=== PATIENT | female | born 1945 | race Caucasian/White ===

== ENCOUNTER → 2019-10-21 14:56 | Outpatient (BNVA) | payer MEDICARE, OTHER, SELFPAY | PROVIDERS: Family Provider Family Medicine; Referring Provider Nurse Practitioner Family; Visit Provider Podiatrist Foot & Ankle Surgery | DX: M19.072 Primary osteoarthritis, left ankle and foot (principal); M79.672 Pain in left foot; M77.32 Calcaneal spur, left foot | CPT/HCPCS: 73630; 87804 ==

== ENCOUNTER 2020-02-27 15:42 | Outpatient (CLI) | payer MEDICARE, OTHER, SELFPAY ==
--- NOTE | 2020-02-27 16:17 | XR_ITS ---
WS: [id number] TIBIA-FIBULA LEFT TECHNIQUE: 2 views of the left tibia-fibula CLINICAL INFORMATION: UNSPECIFIED FALL, INITIAL ENCOUNTER COMPARISON: None. FINDINGS: No evidence of acute fracture dislocation. Normal tibiotalar joint. Normal visualized tibia and fibul a. Normal soft tissues. Partially visualized left TKA. XR/XR tibia fibula LT 2V [id number] IMPRESSION: Normal left tibia and fibula.
--- NOTE | 2020-02-27 16:17 | XR_ITS ---
WS: [id number] HIPS BILATERAL TECHNIQUE: 5 views bilateral hips Including pelvis CLINICAL INFORMATION: UNSPECIFIED FALL, INITIAL ENCOUNTER COMPARISON: None. FINDINGS: Osteopenia. Normal pubic rami. Moderate degenerative arthritis both hips with joint space narrowing. Degenerative arthritis lower lumbar spine. No acute fractures. XR/XR hip BI m 5V wo/w pel* [id number] IMPRESSION: Moderate degenerative arthritis both hips with joint space narrowing. No acute fractures.
--- NOTE | 2020-02-27 16:17 | XR_ITS ---
WS: [id number] LUMBAR SPINE TECHNIQUE: 3 views of the lumbar spine CLINICAL INFORMATION: LOW BACK PAIN COMPARISON: None. FINDINGS: Mild lumbar curve convex right. Advanced spondylitic changes lumbar spine. Cholecystectomy clips. Hyp oplastic ribs at T12. Five tsz-lqm-tzagfal lumbar vertebral bodies. Slight anterolisthesis L3 on L4 and L4 on L5. Disc space narrowing of the lumbar spine. Chronic appea ring biconcave compression fracture L1 with loss of approximately 50% vertebral body height. Mild ret ropulsion of the posterior superior cortex. This can be further evaluated with MRI or CT. Moderate fa cet arthropathy L3-L5. XR/XR lumbar spine 2-3V* [id number] IMPRESSION: 1. Mild lumbar curve. Advanced spondylitic changes. 2. Biconcave compression L1 vertebral body has a chronic appearance with loss of approximately 50% vertebral body height. Mild retropulsion of the posterior superior cortex. This can be further evaluated with MRI or CT. 3. Disc space narrowing throughout the lumbar spine worse at L4-L5. 4. Slight anterolisthesis L3 on L4 and L4 on L5.
== END 2020-02-27 15:43 | disposition home or self-care (01) ==
LOC: RADWPI 15:45
PROVIDERS: Family Provider Family Medicine; PCP Family Medicine; Visit Provider Family Medicine
DX: M54.5 Low back pain (principal); M16.0 Bilateral primary osteoarthritis of hip; M48.56XA Collapsed vertebra, not elsewhere classified, lumbar region, initial encounter for fracture
CPT/HCPCS: 72100; 73523; 73590

== ENCOUNTER 2020-03-17 15:09 | Outpatient (CLI) | payer MEDICARE, OTHER, SELFPAY ==
--- NOTE | 2020-03-17 15:17 | MR_ITS ---
WS: [id number] MRI LUMBAR SPINE NONCONTRAST TECHNIQUE: Sagittal T1, T2 and STIR imaging. Axial T1 and T2 imaging. CLINICAL INFORMATION: WEDGE COMPRESSION FX 1ST LUMBAR VERTEBRA COMPARISON: None. FINDINGS: Mild lumbar curve. Slight anterolisthesis L4 on L5. Compression fracture L1 vertebral body measuring approximately 50% with retropulsion posterior superior cortex. This results in mild to moderate centr al canal stenosis. Edema within the L1 vertebral body consistent with acute to subacute compression. L1-L2: Mild annular bulging. Slight narrowing of the left subarticular recess. Mild facet arthropathy . Spinal canal is patent. Mild facet arthropathy. L2-L3: Mild disc bulging with endplate ridging. Narrowing of the left greater than right subarticular recess. Moderate facet arthropathy. Mild left and no significant right foraminal narrowing. L3-L4: Mild disc bulging and osteophytic ridging. Slight impingement on the left subarticular recess and traversing left L4 nerve root. Mild left and no significant right foraminal narrowing. Moderate f acet arthropathy. L4-L5: Mild disc bulging with narrowing of the subarticular recess bilaterally. Mild central canal st enosis. Moderate right and no significant left foraminal narrowing. Moderate facet arthropathy. L5-S1: Mild disc bulging with slight effacement of ventral thecal sac. Moderate facet arthropathy. Sp inal canal and foramen are patent. Visualized pelvic bony structures: Normal. Paravertebral soft tissues: Normal. MR/MR lumbar spine wo con* [id number] IMPRESSION: 1. 50% compression involving L1 superior endplate with mild retropulsion poste rior superior cortex. This results in mild to moderate central canal narrowing. 2. Edema involving the L1 vertebral body consistent with acute to subacute com pression. 3. Grade 1 anterolisthesis L4 on L5 with mild central canal stenosis and impin gement subarticular recess bilaterally. Moderate right L4-5 foraminal narrowing . 4. Moderate facet arthropathy L4-L5 and L5-S1. 5. Other chronic changes described above.
== END 2020-03-17 15:10 | disposition home or self-care (01) ==
LOC: RADSHAW 15:14
PROVIDERS: PCP Family Medicine; Visit Provider Family Medicine
DX: S32.010A Wedge compression fracture of first lumbar vertebra, initial encounter for closed fracture (principal); X58.XXXA Exposure to other specified factors, initial encounter; R60.9 Edema, unspecified; M47.817 Spondylosis without myelopathy or radiculopathy, lumbosacral region
CPT/HCPCS: 72148

== ENCOUNTER 2020-05-05 08:12 | Outpatient (CLI) | payer MEDICARE, OTHER, SELFPAY ==
--- NOTE | 2020-05-05 | MM_ITS ---
WS: [id number] BILATERAL DIGITAL SCREENING MAMMOGRAPHY WITH CAD CLINICAL INFORMATION: SCREEN HISTORY: Screening mammogram. No current complaints. COMPARISON: None. TECHNIQUE: Bilateral CC and MLO views. FINDINGS: Scattered fibroglandular densities bilaterally. Benign punctate calcifications. Indeterminate slightl y spiculated and ovoid densities subareolar right breast largest measuring 10 mm. No comparisons avai lable. RECOMMEND RIGHT DIAGNOSTIC MAMMOGRAPHY AND ULTRASOUND FOR FURTHER EVALUATION. Unremarkable left breast.. MM/[place] [id number] IMPRESSION: BI-RADS: 0-Incomplete: Need additional imaging evaluation FOLLOW UP: Need Additional Imaging
== END 2020-05-05 08:13 | disposition home or self-care (01) ==
LOC: RADSHAW 08:15
PROVIDERS: PCP Family Medicine; Visit Provider Family Medicine
DX: Z12.31 Encounter for screening mammogram for malignant neoplasm of breast (principal); R92.1 Mammographic calcification found on diagnostic imaging of breast
CPT/HCPCS: 77067

== ENCOUNTER 2020-05-26 13:03 | Outpatient (CLI) | payer MEDICARE, OTHER, SELFPAY ==
--- NOTE | 2020-05-26 13:24 | MM_ITS ---
WS: [id number] RIGHT DIGITAL MAMMOGRAPHY WITH CAD CLINICAL INFORMATION: OVID DENSITIES COMPARISON: May 05, 2020 TECHNIQUE: 3 views of the right breast were obtained. FINDINGS: The right breast is composed of heterogeneous fibroglandular density tissue, which can limit the dete ction of small underlying mass lesions. Again seen are the subareolar ovoid and spiculated densities along the posterior nipple line the larg est measuring 10 mm. These are persistent on spot compression views. Ultrasound is pending. Stable dy strophic and lucent centered calcifications. ULTRASOUND BREAST RIGHT TECHNIQUE: Ultrasound right breast focused area of concern. CLINICAL INFORMATION: OVID DENSITIES COMPARISON: None. FINDINGS: Ultrasound right breast at the 12:00 position. Simple cyst corresponds to the ovoid density seen on t he mammogram measuring 1.2 x 1.0 x 1.1 CM. Additional small subcentimeter cysts or ectatic duct measu ring 5 x 3 mm. Findings are benign. No evidence of pathologic mass or lesion. No lesions to target fo [place] biopsy. MM/[place] [id number] IMPRESSION: BI-RADS: 2-Benign FOLLOW UP: 1 Year Follow-up Recommend return to annual screening mammography.
== END 2020-05-26 13:04 | disposition home or self-care (01) ==
LOC: RADSHAW 13:05
PROVIDERS: PCP Family Medicine; Visit Provider Family Medicine
DX: R92.2 Inconclusive mammogram (principal); N60.01 Solitary cyst of right breast
CPT/HCPCS: 76642; 77065

== ENCOUNTER 2020-07-03 09:45 | Outpatient (CLI) | payer MEDICARE, OTHER, SELFPAY ==
--- NOTE | 2020-07-03 09:54 | XR_ITS ---
WS: [id number] Exam: XR knee RT 3V* [id number] Date/Time of Exam: 07/03/2020 9:54 AM Reason For Exam: PAIN IN RIGHT KNEE No fracture or dislocation. Mild degenerative narrowing of the medial joint compartment. No joint eff usion. Normal soft tissues. XR/XR knee RT 3V* [id number] IMPRESSION: 1. No fracture or joint effusion. 2. Mild degenerative narrowing of the medial joint compartment
== END 2020-07-03 09:46 | disposition home or self-care (01) ==
LOC: RADWPI 09:49
PROVIDERS: PCP Family Medicine; Visit Provider Family Medicine
DX: M25.561 Pain in right knee (principal)
CPT/HCPCS: 73562

== ENCOUNTER → 2020-08-13 10:24 | Outpatient (BNVA) | payer MEDICARE, OTHER, SELFPAY | PROVIDERS: PCP Family Medicine; Referring Provider Family Medicine; Visit Provider Specialist | DX: M25.561 Pain in right knee (principal); M17.11 Unilateral primary osteoarthritis, right knee | CPT/HCPCS: 73560; 73565 ==

== ENCOUNTER 2021-03-24 14:20 | Outpatient (CLI) | payer MEDICARE, OTHER, SELFPAY ==
--- NOTE | 2021-03-24 14:37 | XR_ITS ---
WS: [id number] Bone mineral density performed on a Pickie IDXA, 03/24/2021 Clinical data: OSTEOPOROSIS Comparison study: DEXA scan, 08/16/2018. Findings: The first 4 lumbar vertebral bodies demonstrated the bone mineral density of 1.546 g/cm2 for a young adult T score of 3.1. Measurement of the left hip reveals a bone mineral density of 0.847 g/cm2 with a young adult T score of -1.3. Measurement of the right hip reveals the bone mineral density of 0.812 g/cm2 for young adult T score of -1.6. XR/XR DEXA axial skeleton* [id number] Impression: 1. The bone mineral density of the lumbar spine has improved, normal lumbar spi ne. 2. The bone mineral density of the left hip has improved slightly, osteopenia. 3. The bone mineral density of the right hip has diminished slightly, osteopeni a.
== END 2021-03-24 14:21 | disposition home or self-care (01) ==
PROVIDERS: PCP Family Medicine; Visit Provider Nurse Practitioner
DX: M81.0 Age-related osteoporosis without current pathological fracture (principal); M85.89 Other specified disorders of bone density and structure, multiple sites
CPT/HCPCS: 77080

== ENCOUNTER → 2021-04-22 14:30 | Outpatient (BNVA) | payer MEDICARE, OTHER, SELFPAY | PROVIDERS: PCP Family Medicine; Visit Provider Surgery | DX: Z20.822 Contact with and (suspected) exposure to COVID-19 (principal) | CPT/HCPCS: 87635 ==

== ENCOUNTER 2021-04-28 07:05 | Day surgery (SDC) | payer MEDICARE, OTHER, SELFPAY ==
[2021-04-27 10:11] VITALS: BMI 31.8
[2021-04-28] VITALS (7 sets, daily range): BP systolic 130–158; BP diastolic 71–87; PULSE 82–97; RESP 15–17; TEMP 36.2–36.4; O2SAT 97–99
[2021-04-28] MEDS: sodium chloride 0.9% 1,000 ML 30 ML IV (07:36)
--- NOTE | 2021-04-28 07:40 | W.PM.OPSUD ---
Surgery/Procedure H&P Update DATE OF PROCEDURE: April 28, 2021 DATE H&P PERFORMED: 04/06/21 H&P UPDATE INFORMATION: I have reviewed H&P completed within last 30 days, I have examined patient prior to procedure and No changes to prior documentation PREOP DIAGNOSIS: Grade 4 hemorrhoids PLANNED PROCEDURE: Operation Date: 04/28/21 08:15 Proposed Procedures p Hemorroidectomy 16296 K64.3(Not Applicable) - Michael Anna MD
--- NOTE | 2021-04-28 07:47 | ANES.PREANE2 ---
Pre-Anesthetic Assessment Pre-Anesthetic Assessment: Height/Weight: Height 1.6 m Weight 81.647 kg Temp Pulse Resp BP Pulse Ox 97.1 F L 82 15 144/87 97 04/28/21 07:19 04/28/21 07:19 04/28/21 07:19 04/28/21 07:19 04/28/21 07:19 Preop Diagnosis: Grade 4 hemorrhoids Proposed Procedure: Operation Date: 04/28/21 08:15 Proposed Procedures p Hemorroidectomy 06406 K64.3(Not Applicable) - Michael Anna MD Was Beta Eric taken within 24 hours: Yes Was Clonidine taken within 24 hours: N/A Last intake: Intake Last Liquid Date 04/27/21 Last Liquid Time 22:00 Last Solid Date 04/27/21 Last Solid Time 20:00 Social: Social History: No alcohol and No tobacco Exam: Pre-Anes Outpt Exam: alert, oriented x 3, clear to auscultation bilaterally and regular rate & rhythm Airway: Submandibular: WNL Cervical ROM: WNL MP: 2 Dentition: Full CV/HEM: CV/HEM: HTN Metabolic: Metabolic: Hyperlipidemia Anesthetic Plan: ASA status: 3 Anesthesia: General Risk of > 500 ml blood loss (7ml/kg in children): No Meds/Allergies Current Medications: Current Medications Generic Name Dose Route Start Last Admin Trade Name Freq PRN Reason Stop Dose Admin Sodium Chloride 1,000 mls @ 30 ml s/hr 04/28/21 07:15 04/28/21 07:36 Sodium Chloride 0.9% IV 04/29/21 07:14 30 mls/hr .Q24H CRISELDA Administration PFSH Anesthesia PFSH: Medical History GERD (gastroesophageal reflux disease) Hypertension Osteoarthritis Surgical History H/O shoulder surgery bilateral for rotatorcuff History of bunionectomy History of cholecystectomy History of hysterectomy History of total left knee replacement Status post colonoscopy Family History Other Anesthesia complication CAD (coronary artery disease) Dementia Hyperlipidemia Hypertension Stroke Denies family history of Diabetes Clotting disorder Psychiatric illness Chronic kidney disease (CKD) Suicide Bleeding disorder Family history of premature coronary artery disease Lung disease Cancer Social History Smoking and tobacco status: never smoked Second hand smoke exposure: No Alcohol intake: never Lives independently: Yes Household members: spouse Data Anesthesia CBC & Chem 7: 04/28/21 07:33 Cardiac Studies: No Data to Display
[2021-04-28 08:07] LABS: Anion Gap 15.4 (5-19); Blood Urea Nitrogen 19 mg/dL (8-23); Calcium 9.3 mg/dL (8.5-10.5); Carbon Dioxide 27 mmol/L (22-29); Chloride 101 mmol/L (98-107); Glucose 98 mg/dL (65-115); Osmolality Calculated 290 mOsm/kg (285-295); Potassium 4.4 mmol/L (3.5-5.1); Sodium 139 mmol/L (136-145)
--- NOTE | 2021-04-28 09:07 | PM.OP ---
Operative Report Date of procedure: April 28, 2021 Pre-op Diagnosis: Grade 4 hemorrhoids Post-op diagnosis: same Procedure Done: Hemorrhoidectomy x 2 Specimens removed/disposition: Hemorrhoidal columns x2 Surgeon: Michael Anna Anesthesia: General Condition: stable Disposition: PACU Procedure: The patient was taken to the operating room and intubated under general anesthesia after IV antibiotic had been administered and placed in a prone jackknife position. The buttocks were taped apart. The perineum was prepped and draped in a sterile manner. A perianal block was performed using 10 cc of Exparel mixed with 10 cc of 0.5% Marcaine mixed with 10 cc of saline. Anoscope was introduced to examine the rectum and anal canal and 2 hemorrhoid pedicles were identified. The pedicle on the right side was grasped with Allis clamps and a skin incision was made from the perianal skin to the anal verge and the plane identified superficial to the internal sphincter muscle and the external and internal hemorrhoids were excised with an energy device. The pedicle on the left side was grasped with Allis clamps and a skin incision was made from the perianal skin to the anal verge and the plane identified superficial to the internal sphincter muscle and the external and internal hemorrhoids were excised with an energy device. Hemostasis ensured and a Adaptic gauze soaked in Vaseline and placed within the anal canal. Dressings were applied and the patient was extubated and transferred to recovery room in stable condition.
[2021-04-28] MEDS: HYDROcodone-acetaminophen 5-325 mg Tablet 1 TAB PO (09:46)
--- NOTE | 2021-04-28 17:50 | ANE.PACU2 ---
Inpatient post-anesthesia follow up: Airway intact: Yes Vital signs: Temperature 97.2 F Pulse Rate 87 Respiratory Rate 16 Blood Pressure 141/71 Pulse Oximetry 98 Oxygen Delivery Me thod Room Air Oxygen Flow Rate 6 Fraction of Inspir ed Oxygen Hydration adequate: Yes Nausea and vomiting: No Pain level: 2 Mental status: Baseline
== END 2021-04-28 10:15 | disposition home or self-care (01) ==
PROVIDERS: PCP Family Medicine; Visit Provider Surgery
PROC: (CPT 46260; principal; 2021-04-28 08:10)
DX: K64.3 Fourth degree hemorrhoids (principal); K64.8 Other hemorrhoids; K21.9 Gastro-esophageal reflux disease without esophagitis; I10 Essential (primary) hypertension; M19.90 Unspecified osteoarthritis, unspecified site; E78.5 Hyperlipidemia, unspecified
CPT/HCPCS: 46260; 80048; 88304; C9290; J0330; J0690; J2370; J2704; J3010; J3490; J7030

== ENCOUNTER 2021-07-01 10:53 | Outpatient (CLI) | payer MEDICARE, OTHER, SELFPAY ==
--- NOTE | 2021-07-01 10:57 | MM_ITS ---
WS: [id number] Exam: [place] [id number] Date/Time of Exam: 07/01/2021 11:03 AM Reason For Exam: SCREENING VIEWS: MLO and CC views both breasts. Comparison made with prior exam of 05/05/2020. Findings: Stable appearing nodular densities and benign calcifications noted in both breasts. No new finding in either breast. Scattered fibroglandular densities MM/[place] [id number] Impression: BI-RADS: 2-Benign FOLLOW-UP: 1 Year Follow-up This mammogram was also analyzed by the Computer Aided Detection System R2 Imag e Development Technician.
== END 2021-07-01 10:54 | disposition home or self-care (01) ==
PROVIDERS: PCP Family Medicine; Visit Provider Family Medicine
DX: Z12.31 Encounter for screening mammogram for malignant neoplasm of breast (principal)
CPT/HCPCS: 77067

== ENCOUNTER 2022-07-04 09:04 | Outpatient (CLI) | payer MEDICARE, OTHER, SELFPAY ==
--- NOTE | 2022-07-04 09:12 | MM_ITS ---
WS: [id number] BILATERAL SCREENING DIGITAL TOMOSYNTHESIS MAMMOGRAM WITH CAD HISTORY: SCREENING COMPARISON: 05/26/2020, 05/05/2020, 07/01/2021 Bilateral CC and MLO views with tomosynthesis and synthetic mammography submitted. Computer aided det ection analyzed. Breast composition: There are scattered areas of fibroglandular density. No suspicious masses, microc alcifications or architectural distortion. Long-term stability of high density nodules in the anterio r RIGHT breast. Benign bilateral calcifications. MM/[place] [id number] IMPRESSION: BI-RADS: 2-Benign FOLLOW UP: 1 Year Follow-up
== END 2022-07-04 09:05 | disposition home or self-care (01) ==
LOC: RAD 09:06
PROVIDERS: PCP Family Medicine; Visit Provider Family Medicine
DX: Z12.31 Encounter for screening mammogram for malignant neoplasm of breast (principal)
CPT/HCPCS: 77063; 77067

== ENCOUNTER → 2023-03-06 12:50 | Outpatient (BNVA) | payer MEDICARE, OTHER, SELFPAY | PROVIDERS: PCP Family Medicine; Visit Provider Dermatology | DX: L82.0 Inflamed seborrheic keratosis (principal); L81.4 Other melanin hyperpigmentation; D23.61 Other benign neoplasm of skin of right upper limb, including shoulder; D23.71 Other benign neoplasm of skin of right lower limb, including hip; L57.0 Actinic keratosis | CPT/HCPCS: 17000; 17003; 17110; 99213 ==

== ENCOUNTER → 2023-05-24 09:49 | Outpatient (BNVA) | payer MEDICARE, OTHER, SELFPAY | PROVIDERS: PCP Family Medicine; Visit Provider Specialist | DX: M19.011 Primary osteoarthritis, right shoulder; M19.012 Primary osteoarthritis, left shoulder; M75.101 Unspecified rotator cuff tear or rupture of right shoulder, not specified as traumatic; M75.102 Unspecified rotator cuff tear or rupture of left shoulder, not specified as traumatic | CPT/HCPCS: 20610; 73030; 99214; J1100; J2795; J3301 ==

== ENCOUNTER → 2023-06-14 14:27 | Outpatient (BNVA) | payer MEDICARE, OTHER, SELFPAY | PROVIDERS: PCP Family Medicine; Visit Provider Nurse Practitioner | DX: M17.11 Unilateral primary osteoarthritis, right knee; Z96.652 Presence of left artificial knee joint; M25.561 Pain in right knee; M25.562 Pain in left knee; G89.29 Other chronic pain | CPT/HCPCS: 20610; 73560; 73565; 99214; J1100; J3301 ==

== ENCOUNTER 2023-07-07 10:05 | Outpatient (CLI) | payer MEDICARE, OTHER, SELFPAY ==
--- NOTE | 2023-07-07 10:19 | MM_ITS ---
WS: [id number] BILATERAL SCREENING DIGITAL TOMOSYNTHESIS MAMMOGRAM WITH CAD HISTORY: SCREENING COMPARISON: 07/04/2022, 07/01/2021 and 05/05/2020 Bilateral CC and MLO views with tomosynthesis and synthetic mammography submitted. Computer aided det ection analyzed. Breast composition: There are scattered areas of fibroglandular density. No suspicious masses, microc alcifications or architectural distortion. Well-circumscribed 10 mm mass in the central RIGHT breast at 12:00. This has been present on prior studies without increase in size. Additional benign calcific ations in each breast. IMPRESSION: MM/[place] [id number] BI-RADS: 2-Benign FOLLOW UP: 1 Year Follow-up
== END 2023-07-07 10:06 | disposition home or self-care (01) ==
LOC: RAD 10:06
PROVIDERS: PCP Family Medicine; Visit Provider Family Medicine
DX: Z12.31 Encounter for screening mammogram for malignant neoplasm of breast (principal)
CPT/HCPCS: 77063; 77067

== ENCOUNTER → 2023-08-10 15:20 | Outpatient (BNVA) | payer MEDICARE, OTHER, SELFPAY | PROVIDERS: PCP Family Medicine; Visit Provider Nurse Practitioner | DX: M20.011 Mallet finger of right finger(s); M79.641 Pain in right hand | CPT/HCPCS: 73130; 99214 ==

== ENCOUNTER → 2023-09-13 10:13 | Outpatient (BNVA) | payer MEDICARE, OTHER, SELFPAY | PROVIDERS: PCP Family Medicine; Visit Provider Nurse Practitioner | DX: M17.11 Unilateral primary osteoarthritis, right knee; M25.562 Pain in left knee; Z96.652 Presence of left artificial knee joint | CPT/HCPCS: 20610; 73560; 73565; 99213; J1100; J3301 ==

== ENCOUNTER → 2023-09-20 13:30 | Outpatient (BNVA) | payer MEDICARE, OTHER, SELFPAY | PROVIDERS: PCP Family Medicine; Visit Provider Nurse Practitioner | DX: M19.011 Primary osteoarthritis, right shoulder (principal); M19.012 Primary osteoarthritis, left shoulder; M75.101 Unspecified rotator cuff tear or rupture of right shoulder, not specified as traumatic; M75.102 Unspecified rotator cuff tear or rupture of left shoulder, not specified as traumatic | CPT/HCPCS: 20610; J1100; J3301 ==

== ENCOUNTER → 2023-12-22 10:45 | Outpatient (BNVA) | payer MEDICARE, OTHER, SELFPAY | PROVIDERS: PCP Family Medicine; Visit Provider Specialist | DX: M17.11 Unilateral primary osteoarthritis, right knee (principal) | CPT/HCPCS: 20610; J1100; J2795; J3301 ==

== ENCOUNTER → 2024-03-06 10:50 | Outpatient (BNVA) | payer MEDICARE, OTHER, SELFPAY | PROVIDERS: PCP Family Medicine; Visit Provider Nurse Practitioner | DX: L57.0 Actinic keratosis; M75.101 Unspecified rotator cuff tear or rupture of right shoulder, not specified as traumatic; L82.0 Inflamed seborrheic keratosis; M75.102 Unspecified rotator cuff tear or rupture of left shoulder, not specified as traumatic; L91.8 Other hypertrophic disorders of the skin; M19.011 Primary osteoarthritis, right shoulder; M19.012 Primary osteoarthritis, left shoulder; L81.4 Other melanin hyperpigmentation; D23.61 Other benign neoplasm of skin of right upper limb, including shoulder; D23.71 Other benign neoplasm of skin of right lower limb, including hip; D22.0 Melanocytic nevi of lip; D69.2 Other nonthrombocytopenic purpura | CPT/HCPCS: 17000; 17110; 20610; 99213; J1100; J2795; J3301 ==

== ENCOUNTER → 2024-04-05 09:54 | Outpatient (BNVA) | payer MEDICARE, OTHER, SELFPAY | PROVIDERS: PCP Family Medicine; Visit Provider Nurse Practitioner | DX: M17.11 Unilateral primary osteoarthritis, right knee (principal) | CPT/HCPCS: 20610; J1100; J3301 ==

== ENCOUNTER → 2024-06-07 08:54 | Outpatient (BNVA) | payer MEDICARE, OTHER, SELFPAY | PROVIDERS: PCP Family Medicine; Visit Provider Nurse Practitioner | DX: M19.011 Primary osteoarthritis, right shoulder (principal); M19.012 Primary osteoarthritis, left shoulder; M75.102 Unspecified rotator cuff tear or rupture of left shoulder, not specified as traumatic; M75.101 Unspecified rotator cuff tear or rupture of right shoulder, not specified as traumatic | CPT/HCPCS: 20610; J1100; J3301 ==

== ENCOUNTER 2024-07-09 10:25 | Outpatient (CLI) | payer MEDICARE, OTHER, SELFPAY ==
--- NOTE | 2024-07-09 10:28 | MM_ITS ---
WS: [id number] BILATERAL 3D TOMOSYNTHESIS DIGITAL SCREENING MAMMOGRAPHY WITH CAD CLINICAL INFORMATION: SCREENING HISTORY: Screening mammogram. No current complaints. History of breast cysts COMPARISON: 2022 TECHNIQUE: Bilateral CC and MLO views. FINDINGS: Scattered fibroglandular densities bilaterally. No suspicious focal mass, asymmetry, calcifications, or architectural distortion. No evidence of malignancy. Punctate and lucent centered calcifications. Long-term stability ovoid nodule RIGHT breast measuring 10 mm. MM/MM scr tomosynthesis [id number] IMPRESSION: DENSITY: There are scattered areas of fibroglandular density. BI-RADS: 2 - Benign. FOLLOW UP: 1 Year Follow-up Recommend return to annual screening mammography.
== END 2024-07-09 10:26 | disposition home or self-care (01) ==
LOC: RAD 10:26
PROVIDERS: PCP Family Medicine; Visit Provider Family Medicine
DX: Z12.31 Encounter for screening mammogram for malignant neoplasm of breast (principal)
CPT/HCPCS: 77063; 77067

== ENCOUNTER → 2024-08-05 10:15 | Outpatient (BNVA) | payer MEDICARE, OTHER, SELFPAY | PROVIDERS: PCP Family Medicine; Visit Provider Nurse Practitioner | DX: M17.11 Unilateral primary osteoarthritis, right knee (principal) | CPT/HCPCS: 20610; J1100; J2795; J3301 ==

== ENCOUNTER → 2024-09-06 08:31 | Outpatient (BNVA) | payer MEDICARE, OTHER, SELFPAY | PROVIDERS: PCP Family Medicine; Visit Provider Nurse Practitioner | DX: M19.011 Primary osteoarthritis, right shoulder (principal); M19.012 Primary osteoarthritis, left shoulder; M75.101 Unspecified rotator cuff tear or rupture of right shoulder, not specified as traumatic; M75.102 Unspecified rotator cuff tear or rupture of left shoulder, not specified as traumatic | CPT/HCPCS: 20610; J1100; J2795; J3301 ==

== ENCOUNTER → 2024-11-08 10:25 | Outpatient (BNVA) | payer MEDICARE, OTHER, SELFPAY | PROVIDERS: PCP Family Medicine; Visit Provider Nurse Practitioner | DX: M17.11 Unilateral primary osteoarthritis, right knee (principal) | CPT/HCPCS: 20610; J1100; J3301 ==

== ENCOUNTER → 2024-12-06 10:52 | Outpatient (BNVA) | payer MEDICARE, OTHER, SELFPAY | PROVIDERS: PCP Family Medicine; Visit Provider Nurse Practitioner | DX: M19.011 Primary osteoarthritis, right shoulder (principal); M19.012 Primary osteoarthritis, left shoulder; M75.101 Unspecified rotator cuff tear or rupture of right shoulder, not specified as traumatic; M75.102 Unspecified rotator cuff tear or rupture of left shoulder, not specified as traumatic | CPT/HCPCS: 20610; J1100; J3301; J9999 ==

== ENCOUNTER 2025-01-15 19:43 | Emergency (ER) | payer MEDICARE, OTHER, SELFPAY ==
[2025-01-15 19:51] VITALS: BP 160/79; PULSE 95; RESP 16; TEMP 36.4; O2SAT 95; BMI 29.9
--- NOTE | 2025-01-15 20:36 | W.ED.SKABFB ---
HPI - Skin/Abscess/Foreign Bdy General: Chief complaint: Skin/Abscess/Foreign Body Stated complaint: spot on leg Time Seen by Provider: 01/15/25 20:24 History of Present Illness: Patient noticed some bluish discoloration over the left ankle about a week ago. Daughter was concerned that it might be a blood clot. Patient states she had similar episode on her left arm about a year ago which is resolved on its own. Patient is not on any blood thinners. No injury. Related Data Home Medications ?Medication ?Instructions ?Recorded ?Confirmed amlodipine 2.5 mg tablet 2.5 mg PO DAILY 10/21/19 12/06/24 cholecalciferol (vitamin D3) 1,250 1,250 mcg PO DAILY 10/21/19 12/06/24 mcg (50,000 unit) capsule conjugated estrogens 0.9 mg tablet 0.9 PO QAM 10/21/19 12/06/24 (Premarin) metoprolol tartrate 100 mg tablet 100 mg PO DAILY 10/21/19 12/06/24 omeprazole magnesium 20 mg 20 mg PO DAILY 10/21/19 12/06/24 capsule,delayed release simvastatin 20 mg tablet 20 mg PO DAILY 10/21/19 12/06/24 furosemide 20 mg tablet 20 mg PO DAILY 08/13/20 12/06/24 trazodone 50 mg tablet 50 mg PO DAILY 08/13/20 12/06/24 Previous Rx's ?Medication ?Instructions ?Recorded lactulose 10 gram/15 mL oral 15 ml PO BID #237 mL 04/28/21 solution ondansetron HCl 4 mg tablet 4 mg PO Q6H PRN nausea and 04/28/21 (Zofran) vomiting #20 tabs Alumofoam Thumb Splint #1 ea 08/13/23 meloxicam 15 mg tablet 15 mg PO DAILY #90 tabs 12/22/23 Allergies Allergy/AdvReac Type Severity Reaction Status Date / Time ropivacaine Allergy Intermediate itching Verified 01/15/25 19:53 Review of Systems General: Reports: 10 or more systems reviewed and unremarkable except in HPI and below PFSH ED PFSH: Medical History Hand pain, right Pain of right thumb Mallet deformity of thumb, right, acquired Hypertension Osteoarthritis GERD (gastroesophageal reflux disease) Surgical History S/P hemorrhoidectomy (04/28/21) Status post colonoscopy H/O shoulder surgery bilateral for rotatorcuff History of bunionectomy History of hysterectomy History of cholecystectomy History of total left knee replacement Family History Other Anesthesia complication CAD (coronary artery disease) Dementia Hyperlipidemia Hypertension Stroke Denies family history of Diabetes Clotting disorder Psychiatric illness Chronic kidney disease (CKD) Suicide Bleeding disorder Family history of premature coronary artery disease Lung disease Cancer Social History Smoking and tobacco/nicotine status: never used tobacco/nicotine Second hand smoke exposure: No Alcohol intake: never Substance/Drug Use: never Lives independently: Yes Household members: spouse Physical Exam Const: COMMON NORMALS: no acute distress, patient oriented x3 and no limitations GENERAL APPEARANCE: cooperative and comfortable HENMT: COMMON NORMALS: normocephalic and atraumatic HEAD & SCALP: normal to inspection, normocephalic and atraumatic FACE & SINUS: normal facial exam Eye: COMMON NORMALS: conjunctivae normal GENERAL EYE: appearance normal, both eyes and all related structures CONJUNCTIVA: Yes conjunctivae normal Neck/C-Spine: COMMON NORMALS: supple Neuro: COMMON NORMALS: patient oriented x3 Psych: COMMON NORMALS: mental status grossly normal and cooperative Skin: COMMON NORMALS: turgor normal and no jaundice NARRATIVE SKIN EXAM: Varicose veins of both ankles and lower legs. On the left ankle the varicose veins appear to be bleeding under the skin somewhat causing some bruising. GENERAL SKIN EXAM: turgor normal Course Vital Signs: Vital signs: Vital Signs Temperature 97.6 F 01/15/25 19:51 Pulse Rate 95 01/15/25 19:51 Respiratory Rate 16 01/15/25 19:51 Blood Pressure 160/79 01/15/25 19:51 Pulse Oximetry 95 01/15/25 19:51 Oxygen Delivery Me thod Room Air 01/15/25 19:51 MDM - Skin/Abscess/Foreign Bdy Medicial Decision Making Patient was reassured that this is not a blood clot. These are likely ruptured varicose veins. This should resolve spontaneously. Follow-up with primary care physician as needed. She was discharged in stable condition. No radiology studies performed this visit Discharge Plan Discharge Patient Disposition: Home Clinical Impression: Varicose veins of ankle Condition: Stable Prescriptions: No Action furosemide 20 mg tablet 20 mg PO DAILY trazodone 50 mg tablet 50 mg PO DAILY Premarin 0.9 mg tablet 0.9 PO QAM simvastatin 20 mg tablet 20 mg PO DAILY amlodipine 2.5 mg tablet 2.5 mg PO DAILY metoprolol tartrate 100 mg tablet 100 mg PO DAILY omeprazole magnesium 20 mg capsule,delayed release(DR/EC) 20 mg PO DAILY cholecalciferol (vitamin D3) 1,250 mcg (50,000 unit) capsule 1,250 mcg PO DAILY (DME) Alumofoam Thumb Splint See Rx Instructions .Route .MEDSUPPLY Qty: 1 0RF Rx Instructions: As directed meloxicam 15 mg tablet 15 mg PO DAILY Qty: 90 0RF Zofran 4 mg tablet 4 mg PO Q6H PRN (Reason: nausea and vomiting) Qty: 20 0RF lactulose 10 gram/15 mL solution 15 ml PO BID Qty: 237 2RF Discharge Orders: Discharge ED (Routine); Ordered 01/15/25 Ordered By: Brien Howard Referrals: Mera Dangelo MD [Primary Care Provider, Family Practice] Patient Instructions: Varicose Veins Print Language: Prydeinig Coding Level of Care Code ED Beer Still Runner Compounder for Natali Best
[2025-01-15 20:59] VITALS: BP 107/67; PULSE 78; O2SAT 98
== END 2025-01-15 21:01 | disposition home or self-care (01) ==
PROVIDERS: Emergency Provider Emergency Medicine; PCP Family Medicine
DX: I83.92 Asymptomatic varicose veins of left lower extremity (principal); I10 Essential (primary) hypertension
CPT/HCPCS: 99282

== ENCOUNTER → 2025-02-13 15:20 | Outpatient (BNVA) | payer MEDICARE, OTHER, SELFPAY | PROVIDERS: PCP Family Medicine; Visit Provider Nurse Practitioner Family | DX: D18.01 Hemangioma of skin and subcutaneous tissue (principal); L81.4 Other melanin hyperpigmentation; D69.2 Other nonthrombocytopenic purpura; L82.0 Inflamed seborrheic keratosis; Z78.9 Other specified health status; R20.8 Other disturbances of skin sensation; L53.8 Other specified erythematous conditions | CPT/HCPCS: 17110; 99213 ==

== ENCOUNTER → 2025-02-21 11:19 | Outpatient (BNVA) | payer MEDICARE, OTHER, SELFPAY | PROVIDERS: PCP Nurse Practitioner Family; Visit Provider Nurse Practitioner | DX: M17.11 Unilateral primary osteoarthritis, right knee (principal); Z71.89 Other specified counseling | CPT/HCPCS: 20610; J1100; J2795; J3301; J9999 ==

== ENCOUNTER 2025-07-11 11:11 | Outpatient (CLI) | payer MEDICARE, OTHER, SELFPAY ==
--- NOTE | 2025-07-11 11:19 | MM_ITS ---
WS: [id number] BILATERAL 3D TOMOSYNTHESIS DIGITAL SCREENING MAMMOGRAPHY WITH CAD CLINICAL INFORMATION: SCREENING HISTORY: Screening mammogram. No current complaints. COMPARISON: 2023 TECHNIQUE: Bilateral CC and MLO views. FINDINGS: Scattered fibroglandular densities bilaterally. No suspicious focal mass, asymmetry, calcifications, or architectural distortion. No evidence of malignancy. Incidental punctate and lucent centered calcifications. Long-term stability ovoid nodule RIGHT breast. MM/MM scr tomosynthesis [id number] IMPRESSION: DENSITY: There are scattered areas of fibroglandular density. BI-RADS: 2 - Benign. FOLLOW UP: 1 Year Follow-up Recommend return to annual screening mammography.
== END 2025-07-11 11:12 | disposition home or self-care (01) ==
LOC: RAD 11:13
PROVIDERS: PCP Nurse Practitioner Family; Visit Provider Nurse Practitioner Family
DX: Z12.31 Encounter for screening mammogram for malignant neoplasm of breast (principal); R92.323 Mammographic fibroglandular density, bilateral breasts; N63.10 Unspecified lump in the right breast, unspecified quadrant
CPT/HCPCS: 77063; 77067